=== PATIENT | male | born 1950 | race Caucasian/White ===

== ENCOUNTER 2018-06-24 03:30 | Emergency (ER) | payer BC ==
[2018-06-24 03:47] VITALS: TEMP 98.2
--- NOTE | 2018-06-24 04:12 | C.PDOC ---
History Of Present Illness The patient presents to the ED for evaluation. Patient states he took his blood pressure several times at home today because he thought it was high. Patent then became very anxious and is requesting something to calm him down. He denies vision change, chest pain, palpitations, extremity numbness/weakness. Time Seen by Provider: 06/24/18 04:12 Chief Complaint (Nursing): Headache History Per: Patient History/Exam Limitations: no limitations Onset/Duration Of Symptoms: Hrs Current Symptoms Are (Timing): Still Present Severity: None Pain Scale Rating Of: 0 Quality: denies: "Pain" Preceeding Symptoms: denies: Visual Disturbances Associated Symptoms: denies: Photophobia, Blurred Vision, Extremity Weakness Recent travel outside of the [place]: No Additional History Per: Patient Past Medical History Reviewed: Historical Data, Nursing Documentation, Vital Signs Vital Signs: Last Vital Signs Temp 98.2 F 06/24/18 03:42 Pulse 80 06/24/18 03:42 Resp 22 06/24/18 03:42 BP 160/97 H 06/24/18 03:42 Pulse Ox 98 06/24/18 03:42 - Medical History PMH: Anxiety, HTN Surgical History: No Surg Hx Family History: States: Hypertension Denies: Diabetes - Social History Hx Tobacco Use: No Hx Alcohol Use: Yes Hx Substance Use: No - Immunization History Hx Tetanus Toxoid Vaccination: No Hx Influenza Vaccination: No Hx Pneumococcal Vaccination: No Review Of Systems Constitutional: Negative for: Fever, Chills Eyes: Negative for: Vision Change Cardiovascular: Negative for: Chest Pain, Palpitations Respiratory: Negative for: Cough, Shortness of Breath Gastrointestinal: Negative for: Nausea, Vomiting Skin: Negative for: Rash, Lesions, Jaundice, Bruising Psych: Positive for: Anxiety Physical Exam - Physical Exam Appears: Non-toxic, No Acute Distress Skin: Warm, Dry Head: Normacephalic Eye(s): bilateral: Normal Inspection Oral Mucosa: Moist Neck: Supple Chest: Symmetrical Cardiovascular: Rhythm Regular Respiratory: No Rales, No Rhonchi Gastrointestinal/Abdominal: Soft, No Tenderness Extremity: Normal ROM Neurological/Psych: Oriented x3 Gait: Steady ED Course And Treatment O2 Sat by Pulse Oximetry: 98 (on RA) Pulse Ox Interpretation: Normal Progress Note: Motrin PO and Ativan PO given. Reevaluation Time: 05:52 Reassessment Condition: Improved Disposition Counseled Patient/Family Regarding: Studies Performed, Diagnosis, Need For Followup, Rx Given - Disposition Referrals: Wilson Vieira MD [Staff Provider] - Disposition: HOME/ ROUTINE Disposition Time: 04:12 Condition: FAIR Additional Instructions: Por favor regrese si los sntomas recurren. Prescriptions: Lorazepam [Ativan] 0.5 mg PO BID PRN #10 tab PRN Reason: Anxiety Instructions: Anxiety, Adult (DC) Forms: [employer] ([place]an) Print Language: BRUNEIAN - Clinical Impression Clinical Impression: Headache, Anxiety - Scribe Statement The provider has reviewed the documentation as recorded by the Scribe (Felicita Lockwood) Provider Attestation: All medical record entries made by the Scribe were at my direction and personally dictated by me. I have reviewed the chart and agree that the record accurately reflects my personal performance of the history, physical exam, medical decision making, and the department course for this patient. I have also personally directed, reviewed, and agree with the discharge instructions and disposition.
[2018-06-24 06:12] VITALS: BP 150/90; PULSE 70; RESP 14
[2018-06-24 06:19] VITALS: O2SAT 98
== END 2018-06-24 06:21 | disposition home or self-care (01) ==
LOC: C.ER 03:30
DX: F41.9 Anxiety disorder, unspecified (principal); R51 Headache; I10 Essential (primary) hypertension